=== PATIENT | female | born 1950 | race Caucasian/White ===

== ENCOUNTER 2017-05-29 09:31 | Inpatient (IN) | payer OTHER ==
[~2017-05-29] VITALS: Ht 162.6 cm; Wt 49.4 kg
[2017-05-29 10:50] LABS: EOSINOPHIL (%) 0.3 % (0-5); HEMATOCRIT 43.3 % (36.0-46.0); IMMATURE GRANULOCYTE (%) 0.3 % (0.0-0.7); INSTRUMENT ABS NEUTROPHIL CT 7.9 K/uL; LYMPHOCYTE COUNT 2.4 K/uL (1.0-2.8); MCH 30.5 PG (29.0-34.0); MCHC 33.5 G/DL (30.0-36.0); MCV 91.2 FL (83-99); MEAN PLAT.VOLUME 9.6 uM^3 (9.5-12.4); MONOCYTE (%) 6.1 % (3-12); MONOCYTE COUNT 0.7 K/uL (0-0.8); NEUTROPHIL (%) 70.9 % (45-76); NEUTROPHIL COUNT 7.9 K/uL (1.8-6.4); PLATELET COUNT 290 K/uL (156-360); RBC DIS.WIDTH-CV 12.7 % (11.8-14.6); RBC DIS.WIDTH-SD 42.7 % (39-53); RED BLOOD COUNT 4.75 M/uL (3.80-5.20); WHITE BLOOD COUNT 11.1 K/uL (4.1-10.2)
[2017-05-29 11:01] LABS: CHLORIDE 106 mEq/L (99-109); POTASSIUM 4.7 mEq/L (3.7-5.4); SODIUM 139 mEq/L (136-147)
[2017-05-29 11:03] LABS: GLUCOSE 107 mg/dL (70-99)
[2017-05-29 11:04] LABS: ANION GAP 12 MEQ/L (2-14)
[2017-05-29 11:05] LABS: TOTAL BILIRUBIN 0.6 mg/dL (0.0-1.0)
[2017-05-29 11:06] LABS: ALKALINE PHOSPHATASE 68 IU/L (3-129)
[2017-05-29 11:07] LABS: GFR ESTIMATE (CALCULATED) 43 mL/min/
[2017-05-29 11:08] LABS: UREA NITROGEN (BUN) 23 mg/dL (9-23)
[2017-05-29 11:10] LABS: LIPASE 28 U/L (1.0-51.0); TROP-I INTERPRETATION POSITIVE
[2017-05-29] MEDS ORDERED: ERGOCALCIF50000 UNIT PO (12:44)
[2017-05-29] MEDS ORDERED: NORVASC5 MG PO (12:45)
[2017-05-29] MEDS ORDERED: CYANOCOBAL1000 MCG/2 IM (12:45)
[2017-05-29] MEDS ORDERED: PLAVIX75 MG PO (12:46)
[2017-05-29] MEDS ORDERED: ZETIA10 MG PO (12:46)
[2017-05-29] MEDS ORDERED: PRAVACHOL40 MG PO (12:46)
[2017-05-29] MEDS ORDERED: VITAMIN C1000 MG PO (12:47)
[2017-05-29] MEDS ORDERED: ASPIRIN81 M2 PO (12:47)
[2017-05-29] MEDS ORDERED: B-COMPLEX-VITA1 EACH PO (12:47)
[2017-05-29 12:51] LABS: MAGNESIUM 2.3 mg/dL (1.3-2.7)
[2017-05-29 13:28] LABS: HDL CHOLESTEROL 49 MG/DL (Desirable>=50); LDL CHOLESTEROL 110 mg/dL (Desirable<100); NON-HDL CHOLESTEROL 130 mg/dL (Desirable<160); TOTAL CHOLESTEROL 179 mg/dL (Desirable<200); TRIGLYCERIDES 102 MG/DL (Normal: <150)
[2017-05-29 14:27] LABS: Estimated Average Glucose 131 mg/dL (70-123); HEMOGLOBIN A1c (GLYCOHEMOGLOB) 6.2 % HGB (Below 5.7)
[2017-05-29 18:05] VITALS: BP 123/57
[2017-05-29 18:27] LABS: BASOPHIL COUNT 0.1 K/uL (0-0.1); EOSINOPHIL (%) 0.4 % (0-5); HEMATOCRIT 36.3 % (36.0-46.0); IMMATURE GRANULOCYTE (%) 0.3 % (0.0-0.7); INSTRUMENT ABS NEUTROPHIL CT 5.6 K/uL; LYMPHOCYTE COUNT 3.9 K/uL (1.0-2.8); MCH 31.8 PG (29.0-34.0); MCV 90.8 FL (83-99); MEAN PLAT.VOLUME 9.8 uM^3 (9.5-12.4); MONOCYTE (%) 6.6 % (3-12); MONOCYTE COUNT 0.7 K/uL (0-0.8); NEUTROPHIL (%) 54.3 % (45-76); NEUTROPHIL COUNT 5.6 K/uL (1.8-6.4); PLATELET COUNT 271 K/uL (156-360); RBC DIS.WIDTH-CV 12.8 % (11.8-14.6); RBC DIS.WIDTH-SD 42.5 % (39-53); WHITE BLOOD COUNT 10.3 K/uL (4.1-10.2)
[2017-05-29 18:49] LABS: TROP-I INTERPRETATION POSITIVE; TROPONIN-I 4.08 ng/mL (0.0-0.30)
[2017-05-29 20:45] VITALS: BP 131/60
[2017-05-29 20:49] LABS: POINT-OF-CARE METER ID UU13113698
[2017-05-30 00:20] VITALS: BP 132/80
[2017-05-30 01:37] LABS: CREATINE KINASE 160 IU/L (1-294); TOTAL CK 160 IU/L (1-294)
[2017-05-30 01:41] LABS: TROP-I INTERPRETATION POSITIVE
[2017-05-30 01:44] LABS: CK-MB 8.5 ng/mL (0.0-4.9)
[2017-05-30 01:49] LABS: TROPONIN-I 3.41 ng/mL (0.0-0.30)
[2017-05-30 03:38] VITALS: BP 128/65
[2017-05-30 05:20] LABS: HEMATOCRIT 35.9 % (36.0-46.0); MCH 30.3 PG (29.0-34.0); MCHC 32.9 G/DL (30.0-36.0); MCV 92.3 FL (83-99); MEAN PLAT.VOLUME 9.8 uM^3 (9.5-12.4); PLATELET COUNT 238 K/uL (156-360); RBC DIS.WIDTH-CV 12.9 % (11.8-14.6); RBC DIS.WIDTH-SD 43.7 % (39-53); RED BLOOD COUNT 3.89 M/uL (3.80-5.20); WHITE BLOOD COUNT 10.4 K/uL (4.1-10.2)
[2017-05-30 05:41] LABS: TROP-I INTERPRETATION POSITIVE; TROPONIN-I 3.29 ng/mL (0.0-0.30)
[2017-05-30 05:42] LABS: CREATINE KINASE 154 IU/L (1-294); TOTAL CK 154 IU/L (1-294)
[2017-05-30 07:24] VITALS: BP 131/60
[2017-05-30 07:32] LABS: CK-MB 12.1 ng/mL (0.0-4.9)
[2017-05-30 07:51] LABS: POINT-OF-CARE METER ID UU13113781
[2017-05-30] MEDS ORDERED: NICOTINE PATCH1 EAC2 TD (10:47)
[2017-05-30] MEDS ORDERED: ASPIRIN EC325 MG PO (10:47)
[2017-05-30] MEDS ORDERED: ATORVASTATIN CA40 MG PO (10:47)
[2017-05-30] MEDS ORDERED: LOPRESSOR25 MG PO (10:47)
== END 2017-05-30 11:37 | disposition home or self-care (01) | DRG 247 ==
LOC: EME 09:31 → EDOF 11:40 → ENRESERV 11:41 → 2SOUTH 16:02 → 4EAST 17:58
PROVIDERS: Emergency Medicine; Internal Medicine; Internal Medicine Cardiovascular Disease
DX: I21.4 Non-ST elevation (NSTEMI) myocardial infarction (principal); I25.10 Atherosclerotic heart disease of native coronary artery without angina pectoris; E11.51 Type 2 diabetes mellitus with diabetic peripheral angiopathy without gangrene; I10 Essential (primary) hypertension; J44.9 Chronic obstructive pulmonary disease, unspecified; R00.0 Tachycardia, unspecified; K21.9 Gastro-esophageal reflux disease without esophagitis; R42 Dizziness and giddiness; E78.5 Hyperlipidemia, unspecified; R68.83 Chills (without fever); F17.210 Nicotine dependence, cigarettes, uncomplicated; Z95.820 Peripheral vascular angioplasty status with implants and grafts; Z79.02 Long term (current) use of antithrombotics/antiplatelets; Z79.82 Long term (current) use of aspirin
CPT/HCPCS: 71010; 76705; 80053; 80061; 82272; 82550; 82550 91; 82553; 82948; 83036; 83690; 83735; 84484; 85025; 85025 91; 85027; 85347; 85730; 93005; 93306; 99281; 99285; C1725; C1769; C1874; C1887; J1644; J2250; J3010; J3246; J7030